=== PATIENT | male | born 1955 | race Hispanic/Latino ===

== ENCOUNTER 2024-11-14 06:56 | Day surgery (SDC) | payer OTHER ==
[2024-11-10 09:01] LABS: IMMATURE GRANULOCYTE ABSOLUTE 0.02 K/uL (0-1); NUCLEATED RED BLOOD CELLS 0.0 % (0.0-0.19); PLATELET COUNT (AUTO) 251 K/uL (130-400); RED BLOOD CELL COUNT(AUTO) 5.18 MIL/uL (4.50-6.20); RED CELL DISTRIBUTION WIDTH 12.7 % (11.0-15.5); WHITE BLOOD COUNT (AUTO) 8.0 K/uL (4.8-10.8)
[2024-11-10 09:08] LABS: CREATININE 1.5 mg/dL (0.5-1.3); GLOMERULAR FILTR. RATE CALC 50.0 mL/min (>90); GLUCOSE,RANDOM 101.0 mg/dL (70-105); SODIUM SERUM 141.0 mmol/L (136-145); UREA NITROGEN, BLOOD 30.0 mg/dL (7-18)
[2024-11-10 09:09] LABS: INR 1.03 (0.85-1.15)
[2024-11-10 09:32] VITALS: BP 140/64; PULSE 61; RESP 14; TEMP 97.5
--- NOTE | 2024-11-10 11:12 | EKG ---
[facility] Test Date: 2024-11-10 Test Time: 08:50:28 Pat Name: EMILIA WONG Department: [facility] Room: Gender: M Jeweler Apprentice: [id number] : 1955 Requested By: MARIA DURHAM Order Number: [id number] Reading MD: Harvey Perez Measurements Intervals [place] Rate: 66 P: 26 NM: 190 QRS: -26 QRSD: 96 T: 0 QT: 400 QTc: 420 Interpretive Statements Sinus rhythm Inferior infarct, old No previous ECG available for comparison Electronically Signed On 11-10-2024 19:17:04 CDT by Harvey Perez Please click the below link to view image of tracing.
[2024-11-14] VITALS (16 sets, daily range): BP systolic 100–156; BP diastolic 46–81; PULSE 60–91; RESP 14–20; TEMP 97.1–97.6
[~2024-11-14] VITALS: Ht 167.6 cm; Wt 83.0 kg
[~2024-11-14 06:56] MED LIST: 0.9%NACL 1000ML 1,000 ML IV ONE; AMLO-258 PO; ASPI-1005 PO; CHOL100040 PO; EMPA25TA PO; GABA-529 PO; GLIM1TAB56 PO; INSU3INS3 SQ; LOSA1TAB54 PO; OMEP20CA12 PO; POTA-200 PO; ROSU40TA88 PO; SEMA1PEN3 SQ
[2024-11-14] MEDS ORDERED: LIDOCAINE PF 100MG/5ML (2%) SYRINGE 5ML ONE (07:29)
[2024-11-14] MEDS ORDERED: GLYCOPYRROLATE 0.2 MG/ML 5 ML VIAL ONE (07:30)
[2024-11-14] MEDS ORDERED: NEOSTIGMINE METHYLSULFATE 1MG/ML IV ONE (07:30)
[2024-11-14] MEDS ORDERED: SUCCINYLCHOLINE CHLORIDE 20 MG/ML 10 ML VIAL ONE (07:30)
[2024-11-14] MEDS ORDERED: MIDAZOLAM HCL 1 MG/ML 2ML VIAL ONE (07:31)
[2024-11-14] MEDS ORDERED: FAMOTIDINE 20MG VIAL IV ONE (07:47)
[2024-11-14] MEDS ORDERED: SUGAMMADEX SODIUM 200 MG/2 ML VIAL IV ONE ×2 (08:41→09:24)
[2024-11-14] MEDS ORDERED: LIDOCAINE HCL 1% 20 ML VIAL ONE (08:47)
--- NOTE | 2024-11-14 13:04 | OP ---
Operative Note: DATE OF PROCEDURE: 11/14/24 SURGEON: MARIA DURHAM DO BACK SIZER: None ANESTHESIA: General ANESTHESIOLOGIST/BACK SIZER: DEE Espinoza PREOPERATIVE DIAGNOSIS: Ventral hernia POSTOPERATIVE DIAGNOSIS: 3 cm Ventral hernia SYNOPSIS: None PROCEDURE: Robotic assisted laparoscopic ventral hernia repair with mesh ESTIMATED BLOOD LOSS: 30 cc INDICATIONS: This is a 69-year-old male with many years of painful supraumbilical swelling. On physical exam there is a reducible ventral hernia. I recommended laparoscopic robotic ventral hernia repair with mesh. I discussed the procedure in detail with the patient. All questions were answered. Patient expressed understanding and agreement with plan. DESCRIPTION OF PROCEDURE: The patient was placed on the operating table in the supine position. After adequate sedation the patient was intubated by anesthesia. Perioperative antibiotics were given. The patient's abdomen was prepped and draped in the usual sterile fashion. A time-out was performed. Local anesthetic was infiltrated into the skin and soft tissue of the proposed skin incision. A 1 cm skin incision was made in the left upper quadrant miner's point. The peritoneal cavity was accessed using 5 mm Optiview technique. The abdomen was insufflated. The patient tolerated insufflation well. A laparoscopic camera was inserted and all four quadrants of the abdomen were inspected and found to be grossly normal with the exception of a moderate- sized ventral hernia containing omentum. Two additional 8 mm ports were placed in the left flank and left lower quadrant under direct visualization. The 5 mm port was exchanged for an 8 mm robotic port under direct visualization. The patient was placed in left side up position. The robot was docked. The omentum was reduced. A peritoneal flap was created and the hernia sac was reduced in its entirety. The midline defect was approximated using a 0 V lock absorbable suture in a running fashion. An [address] coated mesh was placed and secured to the abdominal wall using multiple interrupted sutures of 2-0 Vicryl. The peritoneal flap was approximated using a running suture of 3-0 V lock absorbable. The robot was undocked. The ports were removed under direct vi sualization and found to be hemostatic. The patient tolerated the procedure well. All instrument, needle, and sponge counts were correct at the end of the procedure. The patient was aroused from sedation, extubated, and transferred to the postanesthesia care unit in good condition. MARIA DURHAM DO Nov 14, 2024 13:04
--- NOTE | 2024-11-14 14:20 | NUR ---
BOTH PT AND GIVEN VERBAL AND WRITTEN DISCHARGE INSTRUCTIONS. IV REMOVED SITE ASYMPTOMATIC. ASSISTED PT WITH CHANGING PT ALSO TAKEN OUT VIA WHEELCHAIR SON DRIVING.
== END 2024-11-14 14:30 | disposition home or self-care (01) ==
LOC: DAH 06:56
PROVIDERS: ATTEND Student in an Organized Health Care Education/Training Program
DX: K43.9 Ventral hernia without obstruction or gangrene (principal); I10 Essential (primary) hypertension; K21.9 Gastro-esophageal reflux disease without esophagitis; E11.9 Type 2 diabetes mellitus without complications; Z88.1 Allergy status to other antibiotic agents; Z88.8 Allergy status to other drugs, medicaments and biological substances; Z79.82 Long term (current) use of aspirin; Z79.01 Long term (current) use of anticoagulants; Z79.899 Other long term (current) drug therapy
CPT/HCPCS: 80048; 85025; 85610; 85730; 36415; 93005; 49593; 82948 ×2; A6260; A4663; J7030 ×2; C1781; J3490 ×4; J3010 ×2; J1100; J0330; J0665 ×2; J2003; J2250; J2704; J2405; J2710; J2371; J0690 ×2; C1769; A4930; A4215; A4213; A4222; A4221; A4216; A4223 ×2

== ENCOUNTER → 2025-01-05 | Outpatient (CLI) | payer OTHER ==
[~2025-01-05] MED LIST changes: -0.9%NACL 1000ML 1,000 ML IV ONE
--- NOTE | 2025-01-06 05:59 | HMCIMG ---
EXAMINATION: ULTRASOUND OF THE ABDOMEN WITH COLOR DOPPLER. CLINICAL HISTORY: Pain. COMPARISON: None. TECHNIQUE: Real-time grayscale ultrasound images of the abdomen. In addition, color Doppler is medically necessary to perform in order to evaluate vascularity and blood flow. FINDINGS: Liver: Bulky in caliber, the right hepatic lobe measures 16.2 cm in the craniocaudal dimension. There is increased echogenicity of the hepatic parenchyma. There is no focal hepatic abnormality or intrahepatic biliary ductal dilatation. There is normal spectral Doppler of the main portal vein. Gallbladder: Within normal limits with normal wall thickness (0.3 cm). No hyperemia or pericholecystic free fluid. There is no cholelithiasis. Common bile duct is normal in caliber, measuring 0.2 cm. Spleen is normal in caliber and measures 11.0 x 2.9 x 3.9 cm in craniocaudal, AP and transverse dimensions respectively. No focal lesions. Pancreas: Normal in caliber and echotexture. No calcification or dilated pancreatic duct. The kidneys are normal in caliber, the right kidney measures 10.1 x 4.2 x 4.2 cm and the left kidney measures 10.0 x 4.6 x 4.3 cm in craniocaudal, AP, and transverse dimensions respectively. There is normal renal cortical thickness, and cortical echogenicity. There is no renal calculus or hydronephrosis. The proximal aorta is normal in caliber measuring 2.5 cm. The mid and distal aorta are obscured by overlying bowel gas. Visualized aspects of the inferior vena cava are unremarkable. There is a complex collection that measures 3.9 x 1.6 x 2.1 cm in the mid anterior abdominal wall subcutaneous plane. IMPRESSION: Hepatomegaly with hepatic steatosis. Complex collection in the mid abdominal wall concerning for seroma (hernia repair area). /[place]
== END | disposition home or self-care (01) ==
LOC: RAH 09:22
PROVIDERS: ATTEND Student in an Organized Health Care Education/Training Program
DX: K76.0 Fatty (change of) liver, not elsewhere classified (principal); R10.9 Unspecified abdominal pain
CPT/HCPCS: 76700